=== PATIENT | female | born 1945 | race American Indian/Alaskan Native ===

== ENCOUNTER 2017-06-19 11:17 | Outpatient (CLI) | payer MEDICARE ==
--- NOTE | 2017-06-19 12:02 | XRay Report ---
CERVICAL SPINE RADIOGRAPHS INDICATION: Cervical pain. COMPARISON: None similar. FINDINGS: AP, lateral and open-mouth views of the cervical spine, 4 images fail to well-visualize the dens and lateral masses due to overlying structures. Clear visualized lung apices. Possible osteopenia. Grossly normal airway and prevertebral soft tissues. Slight, 1 mm retrolisthesis of C3 over C4. Normal vertebral body stature and remainder alignment. Mild C3-C5 degenerative spurring with adequate visualization upto C7-T1. Mid to lower cervical facet arthropathy suspected. Grossly preserved disc heights. CONCLUSION: Mild, age-appropriate cervical spine degenerative changes with craniocervical articulation assessment suboptimal, as described. Please correlate. Thank you for the opportunity to participate in this patient's care.
== END 2017-06-19 11:18 | disposition home or self-care (01) ==
LOC: SPVIMAG 11:17
PROVIDERS: ATTEND Internal Medicine
DX: M47.892 Other spondylosis, cervical region (principal)
CPT/HCPCS: 72040

== ENCOUNTER 2020-06-08 09:04 | Outpatient (CLI) | payer MEDICARE, BC ==
--- NOTE | 2020-06-08 10:02 | Mammography Report ---
DIGITAL SCREENING MAMMOGRAM WITH CAD, 06/08/2020 INDICATION: Routine screening mammography. History of left mastectomy for breast cancer. TECHNIQUE: Digital right 2D mammography was obtained in the craniocaudal and mediolateral oblique pr ojections. This examination was interpreted with the benefit of Computer-Aided Detection analysis. COMPARISON: 05/07/2018, 05/13/2019 FINDINGS: Breast Density: The breasts are heterogeneously dense, which may obscure small masses. There is no evidence of dominant mass, suspicious calcifications or architectural distortion in the r ight breast. No interval change. IMPRESSION: No evidence of malignancy. BI-RADS Category 1: Negative. No mammographic evidence of malignancy. Recommend routine screening m ammography in one year. A "normal" or negative report should not discourage follow up or biopsy of a clinically significant f inding. A written summary of these findings will be mailed to the patient. The patient will be entered into a mammography reporting system which will generate a reminder letter for the patient's next appointmen t at the appropriate interval. The [employer] recommends yearly mammograms starting at age 40 and continuing as l jimi as a woman is in good health. Breast MRI is recommended for women with an approximate 20-25% or greater lifetime risk of breast cancer, including women with a strong family history of breast or ova siria cancer or who have been treated for Hodgkin's disease. Signer Name: Diana Landis MD Signed: 06/08/2020 9:58 AM Workstation Name: [id number]
== END 2020-06-08 09:05 | disposition home or self-care (01) ==
LOC: SPVWC 09:04
PROVIDERS: ATTEND Surgery
DX: Z12.31 Encounter for screening mammogram for malignant neoplasm of breast (principal)